=== PATIENT | female | born 1985 | race African-American/Black ===

== ENCOUNTER 2019-08-10 12:43 | Inpatient (IN) ==
[2019-08-10] MEDS ORDERED: ACETAMINOPHEN 500 MG TABLET ONE (13:27)
[2019-08-10] MEDS ORDERED: SODIUM CHLORIDE 0.9% 1,000 ML IV STA ×2 (13:31→14:35)
[2019-08-10] MEDS ORDERED: ACETAMINOPHEN 500 MG TABLET PO STA (13:32)
[2019-08-10] MEDS ORDERED: predniSONE 20 MG TABLET PO STA (14:28)
[2019-08-10 14:34] LABS: INR 1.1; PT Patient Result 11.8 SECS (9.6-12.2)
[2019-08-10] MEDS ORDERED: ALBUTEROL 2.5 MG/3 ML NEB RESP TX PRN (14:37)
[2019-08-10] MEDS ORDERED: PROMETHAZINE 25 MG/1 ML VIAL IM PRN (14:37)
[2019-08-10] MEDS ORDERED: ONDANSETRON 4 MG/2 ML VIAL IV PRN (14:37)
[2019-08-10] MEDS ORDERED: ACETAMINOPHEN 325 MG TABLET PO PRN (14:37)
[2019-08-10] MEDS ORDERED: NOREPINEPHRINE 8 MG in SODIUM CHLORIDE 0.9% 242 ML IV PRN (14:43)
[2019-08-10 14:59] LABS: Bilirubin,Total 1.1 MG/DL (0.2-1.0); Calcium 7.4 MG/DL (8.5-10.1); Total Protein 6.3 G/DL (6.4-8.3)
[2019-08-10 15:10] LABS: Basophils % 0.2 % (0.0-0.8); Hematocrit 21.2 VOL% (35.7-47.0); Hemoglobin 6.6 GM/DL (12.0-16.0); Immature Granulocytes % 0.7 %; Immature Granulocytes Absolute 0.03 #; Lymphocytes # 0.3 10*3/uL (1.4-4.0); Lymphocytes % 6.1 % (21.3-54.2); Mean Corpuscular HGB Conc 31.1 GM/DL (32-36); Mean Corpuscular Volume 87.2 FL (87-102); Mean Platelet Volume 11.8 FL (9.6-12.0); Monocytes % 5.1 % (1.7-12.7); Neutrophils % 87.9 % (38.7-73.9); Platelet Count 228 T/CUMM (130-400); Red Blood Count 2.43 MC/CUMM (3.8-5.5); Red Cell Distribution Width 13.3 % (9.3-17.3); White Blood Count 4.3 T/CUMM (4-12)
[2019-08-10 15:21] LABS: Apearance,Urine CLEAR (Clear); Bilirubin,Urine Negative (Negative); Blood, Urine Negative (Negative); Glucose,Urine (UA) Negative (Negative); Ketones,Urine Negative (Negative); Nitrite,Urine Negative (Negative); Protein,Urine Negative; RBC,Urine 3 /HPF (0-4); Squamous Epithelial Cell,Urine Few /HPF (0-10); Urine Color Yellow (Yellow); Urine Specific Gravity 1.011 (1.001-1.035); WBC,Urine <1 /HPF (0-6)
[2019-08-10] MEDS ORDERED: SODIUM CHLORIDE 0.9% 1,000 ML IV PRN (15:25)
[2019-08-10] MEDS ORDERED: POTASSIUM CHLORIDE 20 MEQ TABLET PO ONE (15:33)
[2019-08-10 15:47] LABS: Band Neutrophils 1 % (0-10); Hypochromasia 1+; Lymphocytes 1 % (20-55); Segmented Neutrophils 93 % (50-85); Total Cells Counted 100
[2019-08-10 15:48] LABS: Macrocytosis Slight; Microcytosis 1+; Platelet Estimate Adequate; Polychromasia Slight
[2019-08-10 15:49] LABS: Helmet Cells Few
[2019-08-10 16:06] LABS: Hematocrit 20.7 VOL% (35.7-47.0); Hemoglobin 6.5 GM/DL (12.0-16.0); Immature Granulocytes % 0.7 %; Immature Granulocytes Absolute 0.03 #; Lymphocytes # 0.3 10*3/uL (1.4-4.0); Lymphocytes % 5.8 % (21.3-54.2); Mean Corpuscular HGB Conc 31.4 GM/DL (32-36); Mean Corpuscular Volume 88.1 FL (87-102); Mean Platelet Volume 11.6 FL (9.6-12.0); Monocytes % 4.9 % (1.7-12.7); Neutrophils % 88.6 % (38.7-73.9); Platelet Count 232 T/CUMM (130-400); Red Blood Count 2.35 MC/CUMM (3.8-5.5); Red Cell Distribution Width 13.5 % (9.3-17.3); White Blood Count 4.5 T/CUMM (4-12)
[2019-08-10] MEDS: DORNASE ALFA 2.5 MG/2.5 ML VIAL RESP TX SCH ×2 (16:15→19:04)
[2019-08-10 17:06] LABS: Ferritin 2326.5 ng/ml (8-252)
[2019-08-10 17:19] LABS: Band Neutrophils 3 % (0-10); Hypochromasia Slight; Lymphocytes 4 % (20-55); Microcytosis 1+; Platelet Estimate Adequate; Segmented Neutrophils 87 % (50-85); Total Cells Counted 100
[2019-08-10] MEDS: methylPREDNISolone SOD SUC 40 MG/1 ML VIAL IV SCH ×2 (17:27→20:40)
[2019-08-10] MEDS: PIPERACILLIN/TAZOBACTAM 3,375 MG in SODIUM CHLORIDE 0.9% 100 ML IV SCH ×2 (17:34→23:04)
[2019-08-10] MEDS: VANCOMYCIN INJ 750 MG in SODIUM CHLORIDE 0.9% 250 ML IV SCH (17:34)
[2019-08-10] MEDS: FLUCONAZOLE INJ 200 MG in PREMIX 1 EACH IV SCH (17:34)
[2019-08-10] MEDS: PANTOPRAZOLE 40 MG TABLET PO SCH (17:35)
[2019-08-10] MEDS: NYSTATIN 500,000 UNIT/5 ML UDCUP SWISH/SWAL SCH ×2 (17:39→20:50)
[2019-08-10 17:45] LABS: Folate 12.6 NG/ML (5.4-24.0); Vitamin B12 605 PG/ML (211-911)
[2019-08-10 17:45] LABS: Sedimentation Rate-Westergren 135 MM/HR (0-20)
[2019-08-10] MEDS: ENOXAPARIN 40 MG/0.4 ML SYRINGE SUBCUT SCH (17:45)
[2019-08-10] MEDS: SODIUM CHLORIDE 0.9% 1,000 ML IV SCH (17:45)
[2019-08-10] MEDS: SULFAMETH/TRIMETH INJ 200 MG in DEXTROSE 5% 250 ML IV SCH ×2 (18:39→23:33)
[2019-08-10] MEDS: ALBUTEROL/IPRATROPIUM 3 ML NEB RESP TX SCH (18:57)
[2019-08-10] MEDS: LEVOFLOXACIN INJ 750 MG in PREMIX 1 EACH IV SCH (20:45)
[2019-08-10] MEDS ORDERED: TRIMETH IV SCH (22:00)
[2019-08-10] MEDS ORDERED: DEXTROSE 5% IV SCH (22:00)
[2019-08-10] MEDS ORDERED: SULFAMETH IV SCH (22:00)
[2019-08-11] MEDS: ALBUTEROL/IPRATROPIUM 3 ML NEB RESP TX SCH ×4 (01:04→20:03)
[2019-08-11] MEDS: SODIUM CHLORIDE 0.9% 1,000 ML IV SCH ×3 (01:17→23:31)
[2019-08-11] MEDS: methylPREDNISolone SOD SUC 40 MG/1 ML VIAL IV SCH ×4 (02:56→20:23)
[2019-08-11] MEDS: VANCOMYCIN INJ 750 MG in SODIUM CHLORIDE 0.9% 250 ML IV SCH ×2 (03:57→15:53)
[2019-08-11] MEDS: SULFAMETH/TRIMETH INJ 200 MG in DEXTROSE 5% 250 ML IV SCH ×4 (05:06→22:34)
[2019-08-11 06:00] LABS: Hematocrit 30.8 VOL% (35.7-47.0); Hemoglobin 9.8 GM/DL (12.0-16.0); Immature Granulocytes % 0.9 %; Immature Granulocytes Absolute 0.05 #; Lymphocytes # 0.3 10*3/uL (1.4-4.0); Lymphocytes % 4.3 % (21.3-54.2); Mean Corpuscular HGB Conc 31.8 GM/DL (32-36); Mean Corpuscular Volume 90.1 FL (87-102); Monocytes % 1.7 % (1.7-12.7); Neutrophils % 93.1 % (38.7-73.9); Platelet Count 200 T/CUMM (130-400); Red Blood Count 3.42 MC/CUMM (3.8-5.5); Red Cell Distribution Width 13.7 % (9.3-17.3); White Blood Count 5.8 T/CUMM (4-12)
[2019-08-11 06:29] LABS: Band Neutrophils 5 % (0-10); Hypochromasia 1+; Lymphocytes 5 % (20-55); Segmented Neutrophils 88 % (50-85); Total Cells Counted 100
[2019-08-11 06:30] LABS: Microcytosis 1+; Ovalocytes Slight; Platelet Estimate Normal
[2019-08-11] MEDS: PIPERACILLIN/TAZOBACTAM 3,375 MG in SODIUM CHLORIDE 0.9% 100 ML IV SCH ×2 (06:45→14:11)
[2019-08-11 06:47] LABS: Alanine Aminotransferase 14 U/L (13-56); Albumin 1.9 G/DL (3.4-5.0); Alkaline Phosphatase 88 U/L (45-117); Aspartate Amino Transferase 31 U/L (0-37); Bilirubin,Total < 0.39 MG/DL (0.2-1.0); Blood Urea Nitrogen 5 MG/DL (7-18); Calcium 7.2 MG/DL (8.5-10.1); Estimated Glom Filtration Rate 117 ML/MIN; Glucose 259 MG/DL (74-106); Osmolality,Calculated 282.5 MOS/KG (273-304); Total Protein 6.2 G/DL (6.4-8.3)
[2019-08-11] MEDS: DORNASE ALFA 2.5 MG/2.5 ML VIAL RESP TX SCH ×2 (07:25→20:03)
[2019-08-11] MEDS: NYSTATIN 500,000 UNIT/5 ML UDCUP SWISH/SWAL SCH ×4 (09:34→19:59)
[2019-08-11 09:36] LABS: Hemoglobin A1 (Alkaline) 97.2 % (96.5-98.5); Hemoglobin A2 (Alkaline) 2.8 % (1.5-3.5)
[2019-08-11] MEDS: PANTOPRAZOLE 40 MG TABLET PO SCH (09:36)
[2019-08-11] MEDS: FLUCONAZOLE INJ 200 MG in PREMIX 1 EACH IV SCH (14:10)
[2019-08-11] MEDS: ENOXAPARIN 40 MG/0.4 ML SYRINGE SUBCUT SCH (14:17)
[2019-08-11] MEDS ORDERED: BENZONATATE 100 MG CAPSULE PO SCH (15:13)
[2019-08-11] MEDS: BENZONATATE 100 MG CAPSULE PO SCH ×2 (15:53→19:59)
[2019-08-11] MEDS: LEVOFLOXACIN INJ 750 MG in PREMIX 1 EACH IV SCH (16:46)
[2019-08-11] MEDS ORDERED: MELATONIN 3 MG TABLET PO PRN (20:06)
[2019-08-12] MEDS: PIPERACILLIN/TAZOBACTAM 3,375 MG in SODIUM CHLORIDE 0.9% 100 ML IV SCH ×4 (00:10→23:35)
[2019-08-12] MEDS: ALBUTEROL/IPRATROPIUM 3 ML NEB RESP TX SCH ×4 (00:38→20:31)
[2019-08-12] MEDS: methylPREDNISolone SOD SUC 40 MG/1 ML VIAL IV SCH ×2 (03:58→20:29)
[2019-08-12] MEDS: VANCOMYCIN INJ 750 MG in SODIUM CHLORIDE 0.9% 250 ML IV SCH (04:13)
[2019-08-12] MEDS: SULFAMETH/TRIMETH INJ 200 MG in DEXTROSE 5% 250 ML IV SCH (05:21)
[2019-08-12 05:43] LABS: Basophils % 0.1 % (0.0-0.8); Hematocrit 28.7 VOL% (35.7-47.0); Hemoglobin 9.2 GM/DL (12.0-16.0); Immature Granulocytes Absolute 0.13 #; Lymphocytes # 0.4 10*3/uL (1.4-4.0); Lymphocytes % 3.3 % (21.3-54.2); Mean Corpuscular HGB Conc 32.1 GM/DL (32-36); Mean Corpuscular Volume 89.4 FL (87-102); Mean Platelet Volume 11.8 FL (9.6-12.0); Monocytes % 2.7 % (1.7-12.7); Neutrophils % 92.9 % (38.7-73.9); Platelet Count 223 T/CUMM (130-400); Red Blood Count 3.21 MC/CUMM (3.8-5.5); Red Cell Distribution Width 13.8 % (9.3-17.3); White Blood Count 12.4 T/CUMM (4-12)
[2019-08-12 06:12] LABS: Band Neutrophils 4 % (0-10); Calcium 7.7 MG/DL (8.5-10.1); Hypochromasia 1+; Lymphocytes 1 % (20-55); Osmolality,Calculated 282.3 MOS/KG (273-304); Segmented Neutrophils 92 % (50-85); Total Cells Counted 100
[2019-08-12 06:13] LABS: Microcytosis 1+; Ovalocytes Few; Platelet Estimate Normal; Target Cells Slight
[2019-08-12] MEDS: SODIUM CHLORIDE 0.9% 1,000 ML IV SCH (07:59)
[2019-08-12] MEDS: DORNASE ALFA 2.5 MG/2.5 ML VIAL RESP TX SCH ×2 (07:59→20:31)
[2019-08-12] MEDS ORDERED: methylPREDNISolone SOD SUC 40 MG/1 ML VIAL IV SCH (08:00)
[2019-08-12] MEDS: NYSTATIN 500,000 UNIT/5 ML UDCUP SWISH/SWAL SCH (08:53)
[2019-08-12] MEDS: PANTOPRAZOLE 40 MG TABLET PO SCH (08:54)
[2019-08-12] MEDS: BENZONATATE 100 MG CAPSULE PO SCH (08:54)
[2019-08-12] MEDS ORDERED: SULFAMETHOX/TRIMETHOPRIM 800-160 MG TABLET PO SCH (09:00)
[2019-08-12] MEDS ORDERED: PHENOL 1.4% THROAT SPRAY 177 ML BOTTLE PO PRN (10:28)
[2019-08-12] MEDS: FLUCONAZOLE 200 MG TABLET PO SCH (12:34)
[2019-08-12] MEDS: LEVOFLOXACIN 750 MG TABLET PO SCH (12:35)
[2019-08-12] MEDS: HYDROcodone/CHLORPHENIRAMINE ER 5 ML UDCUP PO SCH ×2 (12:36→20:29)
[2019-08-12] MEDS: SULFAMETHOX/TRIMETHOPRIM 800-160 MG TABLET PO SCH ×2 (15:43→20:31)
[2019-08-12] MEDS: ENOXAPARIN 40 MG/0.4 ML SYRINGE SUBCUT SCH (16:23)
[2019-08-12 19:21] LABS: % CD4 (T Cells) 2 % (32-64); % CD8 (T Cells) 54 % (15-40); 4/8 Ratio 0 (>=0.9)
[2019-08-13] MEDS: ALBUTEROL/IPRATROPIUM 3 ML NEB RESP TX SCH ×2 (01:00→07:41)
[2019-08-13 06:10] VITALS: BP 107/70
[2019-08-13 06:54] LABS: Basophils % 0.2 % (0.0-0.8); Hematocrit 31.6 VOL% (35.7-47.0); Immature Granulocytes % 2.8 %; Immature Granulocytes Absolute 0.33 #; Lymphocytes # 0.2 10*3/uL (1.4-4.0); Lymphocytes % 1.4 % (21.3-54.2); Mean Corpuscular HGB Conc 31.6 GM/DL (32-36); Mean Corpuscular Volume 90.3 FL (87-102); Mean Platelet Volume 12.1 FL (9.6-12.0); Monocytes % 2.1 % (1.7-12.7); Neutrophils % 93.5 % (38.7-73.9); Platelet Count 241 T/CUMM (130-400); Red Cell Distribution Width 14.3 % (9.3-17.3); White Blood Count 11.7 T/CUMM (4-12)
[2019-08-13 06:58] LABS: Calcium 7.9 MG/DL (8.5-10.1); Osmolality,Calculated 282.3 MOS/KG (273-304)
[2019-08-13 07:17] LABS: Band Neutrophils 4 % (0-10); Lymphocytes 3 % (20-55); Segmented Neutrophils 90 % (50-85); Total Cells Counted 100
[2019-08-13 07:18] LABS: Hypochromasia 1+; Microcytosis Slight; Ovalocytes Slight; Platelet Estimate Normal
[2019-08-13] MEDS: DORNASE ALFA 2.5 MG/2.5 ML VIAL RESP TX SCH (07:47)
[2019-08-13] MEDS: PIPERACILLIN/TAZOBACTAM 3,375 MG in SODIUM CHLORIDE 0.9% 100 ML IV SCH (08:16)
[2019-08-13] MEDS: methylPREDNISolone SOD SUC 40 MG/1 ML VIAL IV SCH (08:17)
[2019-08-13] MEDS: SULFAMETHOX/TRIMETHOPRIM 800-160 MG TABLET PO SCH (08:18)
[2019-08-13] MEDS: LEVOFLOXACIN 750 MG TABLET PO SCH (08:19)
[2019-08-13] MEDS: FLUCONAZOLE 200 MG TABLET PO SCH (08:19)
[2019-08-13] MEDS: PANTOPRAZOLE 40 MG TABLET PO SCH (09:07)
[2019-08-13] MEDS: HYDROcodone/CHLORPHENIRAMINE ER 5 ML UDCUP PO SCH (09:07)
[2019-08-13 14:25] LABS: HIV 1 RNA Quant Reflex to Geno 418000 copies/mL (Undetected)
[2019-08-13 18:31] LABS: QuantiFERON-Tb Gold Pl Indeterminate (Negative); TB2 Ag Minus Result 0 IU/mL
[2019-08-18 12:54] LABS: HIV-1 Genotypic PR-RT Drug Res INTERP; Tipranavir + Ritonavir SUSC
== END 2019-08-13 11:40 | disposition home or self-care (01) | DRG 892 ==
LOC: EDUNIT# 12:43 → N.ED 12:43 → EDBD 12:43 → N.EDINP 14:37 → SUATTDRO 14:37 → N.CC 15:03 → N.3E 08-11 11:16
PROVIDERS: ADMIT Internal Medicine; ATTEND Family Medicine

== ENCOUNTER 2020-01-19 11:19 | Inpatient (IN) ==
[2020-01-19] MEDS ORDERED: SODIUM CHLORIDE 0.9% 2,000 ML IV STA (11:46)
[2020-01-19] MEDS ORDERED: HYDROCORTISONE 100 MG VIAL IV STA (12:17)
[2020-01-19 12:44] LABS: INR 1.1; PT Patient Result 11.4 SECS (9.8-11.9); Partial Thromboplastin Time 35.9 SECS (23.9-33.8)
[2020-01-19 12:47] LABS: Basophils % 0.8 % (0.0-0.8); Hematocrit 29.5 VOL% (35.7-47.0); Hemoglobin 9.2 GM/DL (12.0-16.0); Lymphocytes % 79.4 % (21.3-54.2); Mean Corpuscular HGB Conc 31.2 GM/DL (32-36); Mean Corpuscular Volume 94.2 FL (87-102); Mean Platelet Volume 11.8 FL (9.6-12.0); Monocytes % 5.6 % (1.7-12.7); Neutrophils % 14.2 % (38.7-73.9); Platelet Count 86 T/CUMM (130-400); Red Blood Count 3.13 MC/CUMM (3.8-5.5); Red Cell Distribution Width 17.1 % (9.3-17.3); White Blood Count 1.3 T/CUMM (4-12)
[2020-01-19 12:55] LABS: Alanine Aminotransferase 56 U/L (13-56); Albumin 3.2 G/DL (3.4-5.0); Alkaline Phosphatase 106 U/L (45-117); Aspartate Amino Transferase 169 U/L (0-37); Bilirubin,Total < 0.39 MG/DL (0.2-1.0); Blood Urea Nitrogen 42 MG/DL (7-18); Calcium 11.5 MG/DL (8.5-10.1); Estimated Glom Filtration Rate 20 ML/MIN; Glucose 71 MG/DL (74-106); Osmolality,Calculated 281.8 MOS/KG (273-304)
[2020-01-19 13:21] LABS: Free T4 (Free Thyroxine) 1.02 NG/DL (0.76-1.46); Thyroid Stimulating Hormone 0.111 uIU/ml (0.358-3.74)
[2020-01-19] MEDS ORDERED: PIPERACILLIN/TAZOBACTAM 3,375 MG in SODIUM CHLORIDE 0.9% 100 ML IV STA (13:22)
[2020-01-19 13:42] LABS: Anisocytosis Slight; Eosinophils 1 % (0-10); Lymphocytes 87 % (20-55); Macrocytosis Slight; Microcytosis Slight; Platelet Estimate Decreased; Reactive Lymphocytes 1+; Segmented Neutrophils 8 % (50-85); Total Cells Counted 100
[2020-01-19 14:08] LABS: Apearance,Urine Slightly Hazy (Clear); Bacteria,Urine Moderate /HPF (Few); Bilirubin,Urine Negative (Negative); Blood, Urine Small mg/dL (Negative); Glucose,Urine (UA) Negative (Negative); Hyaline Casts,Urine 14 /LPF (0-3); Ketones,Urine Negative (Negative); Mucus,Urine Occasional /LPF (Occasional); Nitrite,Urine Negative (Negative); Protein,Urine Negative; RBC,Urine 6 /HPF (0-4); Urine Color Yellow (Yellow); Urine Specific Gravity 1.015 (1.001-1.035); Urine Urobilinogen < 2.0 EU/DL (0.2-1.0); WBC,Urine 3 /HPF (0-6)
[2020-01-19 14:24] LABS: Barbiturates Screen,Urine Negative (Negative); Benzodiazepines Screen,Urine Negative (Negative); Cannabinoid Screen,Urine Negative (Negative); Opiate Screen,Urine Negative (Negative); Phencyclidine Screen,Urine Negative (Negative)
[2020-01-19] MEDS ORDERED: ACETAMINOPHEN 325 MG TABLET PO PRN (15:21)
[2020-01-19] MEDS ORDERED: DOCUSATE SODIUM 100 MG CAPSULE PO PRN (15:21)
[2020-01-19] MEDS ORDERED: ALBUTEROL 2.5 MG/3 ML NEB RESP TX PRN (15:21)
[2020-01-19] MEDS ORDERED: ONDANSETRON 4 MG/2 ML VIAL IV PRN (15:21)
[2020-01-19] MEDS ORDERED: LEVOFLOXACIN INJ 750 MG in PREMIX 1 EACH IV STA (15:29)
[2020-01-19] MEDS ORDERED: NOREPINEPHRINE 8 MG in SODIUM CHLORIDE 0.9% 242 ML IV SCH (15:30)
[2020-01-19] MEDS ORDERED: PANTOPRAZOLE 40 MG VIAL IV SCH (15:30)
[2020-01-19] MEDS ORDERED: VANCOMYCIN INJ 1,000 MG in SODIUM CHLORIDE 0.9% 250 ML IV ONE (16:00)
[2020-01-19] MEDS ORDERED: NICOTINE 21 MG/24 HR PATCH TRANSDERM PRN (16:05)
[2020-01-19 16:18] LABS: ABG Base Excess -2.7 MMOL/L (-2.5-2.5); ABG HCO3 22.2 MMOL/L (20-26); ABG Oxygen Saturation 98.8 % (95-100); ABG PCO2 37.7 MM HG (35-48); ABG PH 7.377 (7.35-7.45); ABG TCO2 20.7 MMOL/L (23-27)
[2020-01-19] MEDS: SODIUM CHLORIDE 0.9% 1,000 ML IV SCH ×2 (16:27→21:22)
[2020-01-19] MEDS: SULFAMETH IV SCH (17:30)
[2020-01-19] MEDS: DEXTROSE 5% IV SCH (17:30)
[2020-01-19] MEDS: TRIMETH IV SCH (17:30)
[2020-01-20] MEDS: SULFAMETH IV SCH ×2 (00:52→09:45)
[2020-01-20] MEDS: TRIMETH IV SCH ×2 (00:52→09:45)
[2020-01-20] MEDS: DEXTROSE 5% IV SCH ×2 (00:52→09:45)
[2020-01-20] MEDS: SODIUM CHLORIDE 0.9% 1,000 ML IV SCH ×2 (08:45→16:30)
[2020-01-20] MEDS ORDERED: VANCOMYCIN INJ 750 MG in SODIUM CHLORIDE 0.9% 250 ML IV PRN (09:38)
[2020-01-20 12:07] LABS: Hematocrit 27.1 VOL% (35.7-47.0); Hemoglobin 8.5 GM/DL (12.0-16.0); Lymphocytes # 0.9 10*3/uL (1.4-4.0); Lymphocytes % 78.3 % (21.3-54.2); Mean Corpuscular HGB Conc 31.4 GM/DL (32-36); Mean Corpuscular Volume 93.4 FL (87-102); Mean Platelet Volume 11.2 FL (9.6-12.0); Monocytes % 6.7 % (1.7-12.7); Platelet Count 80 T/CUMM (130-400); Red Cell Distribution Width 17.2 % (9.3-17.3); White Blood Count 1.2 T/CUMM (4-12)
[2020-01-20] MEDS ORDERED: LORazepam 2 MG/1 ML VIAL IV ONE (12:20)
[2020-01-20 12:35] LABS: Alanine Aminotransferase 33 U/L (13-56); Albumin 2.3 G/DL (3.4-5.0); Alkaline Phosphatase 76 U/L (45-117); Anisocytosis 1+; Aspartate Amino Transferase 91 U/L (0-37); Atypical Lymphocytes Few; Bilirubin,Total < 0.39 MG/DL (0.2-1.0); Blood Urea Nitrogen 27 MG/DL (7-18); Calcium 9.2 MG/DL (8.5-10.1); Eosinophils 4 % (0-10); Estimated Glom Filtration Rate 35 ML/MIN; Glucose 57 MG/DL (74-106); Lymphocytes 76 % (20-55); Osmolality,Calculated 281.4 MOS/KG (273-304); Platelet Estimate Decreased; Segmented Neutrophils 14 % (50-85); Smudge Cells Few; Total Cells Counted 100; Total Protein 6.1 G/DL (6.4-8.3)
[2020-01-20 12:36] LABS: Macrocytosis 1+; Poikilocytosis Slight
[2020-01-20 14:06] LABS: Glucose,CSF 29 MG/DL (40-70)
[2020-01-20 14:16] LABS: Appearance,CSF Clear; Lymphocytes,CSF 94 %; Monocytes,CSF 6 %; Red Blood Cell,CSF < 1 C/CUMM; White Blood Cell,CSF 12 C/CUMM
[2020-01-20] MEDS: DEXTROSE 5% NACL 0.9% 1,000 ML IV SCH (15:04)
[2020-01-20] MEDS: SULFAMETHOX/TRIMETHOPRIM 800-160 MG TABLET PO SCH ×2 (15:29→22:16)
[2020-01-20] MEDS ORDERED: DEXTROSE 10% 250 ML BAG IV ONE (21:53)
[2020-01-20] MEDS: risperiDONE 1 MG TABLET PO SCH (22:16)
[2020-01-20] MEDS: BENZTROPINE 1 MG TABLET PO SCH (22:16)
[2020-01-20] MEDS: DIVALPROEX 250 MG TABLET PO SCH (22:16)
[2020-01-21] MEDS ORDERED: DEXTROSE 10% 250 ML BAG IV PRN (01:03)
[2020-01-21] MEDS: DEXTROSE 5% NACL 0.9% 1,000 ML IV SCH (03:24)
[2020-01-21 08:24] VITALS: BP 101/63
[2020-01-21] MEDS ORDERED: BICTEGRAV EMTRICIT TENOFOV ALA PO SCH (09:00)
[2020-01-21 09:22] LABS: Hematocrit 25.8 VOL% (35.7-47.0); Lymphocytes # 0.8 10*3/uL (1.4-4.0); Lymphocytes % 72.4 % (21.3-54.2); Mean Corpuscular Volume 95.2 FL (87-102); Mean Platelet Volume 11.4 FL (9.6-12.0); Monocytes % 8.6 % (1.7-12.7); Platelet Count 85 T/CUMM (130-400); Red Blood Count 2.71 MC/CUMM (3.8-5.5); Red Cell Distribution Width 17.2 % (9.3-17.3); White Blood Count 1.1 T/CUMM (4-12)
[2020-01-21] MEDS: DIVALPROEX 250 MG TABLET PO SCH (09:31)
[2020-01-21] MEDS: SULFAMETHOX/TRIMETHOPRIM 800-160 MG TABLET PO SCH (09:32)
[2020-01-21] MEDS: BENZTROPINE 1 MG TABLET PO SCH (09:32)
[2020-01-21] MEDS: risperiDONE 1 MG TABLET PO SCH (09:37)
[2020-01-21 09:38] LABS: Alanine Aminotransferase 30 U/L (13-56); Albumin 2.3 G/DL (3.4-5.0); Alkaline Phosphatase 73 U/L (45-117); Aspartate Amino Transferase 69 U/L (0-37); Bilirubin,Total < 0.39 MG/DL (0.2-1.0); Blood Urea Nitrogen 18 MG/DL (7-18); Estimated Glom Filtration Rate 44 ML/MIN; Glucose 68 MG/DL (74-106); Prealbumin 8.4 MG/DL (20-40); Total Protein 6.1 G/DL (6.4-8.3)
[2020-01-21 09:50] LABS: Anisocytosis 1+; Band Neutrophils 3 % (0-10); Eosinophils 4 % (0-10); Lymphocytes 66 % (20-55); Platelet Estimate Decreased; Segmented Neutrophils 17 % (50-85); Total Cells Counted 100
[2020-01-21 09:51] LABS: Macrocytosis Slight
[2020-01-21] MEDS ORDERED: MAGNESIUM SULF RIDER 4 GM in PREMIX 1 EACH IV PRN (11:40)
[2020-01-21] MEDS ORDERED: MAGNESIUM SULF RIDER 2 GM in PREMIX 1 EACH IV PRN (11:40)
[2020-01-21] MEDS ORDERED: LEVOFLOXACIN INJ 750 MG in PREMIX 1 EACH IV SCH (15:00)
[2020-01-22 12:40] LABS: VDRL Spinal Fluid Negative (Negative)
[2020-01-22 14:04] LABS: % CD4 (T Cells) 4 % (32-64); % CD8 (T Cells) 56 % (15-40); 4/8 Ratio 0.1 (>=0.9)
[2020-01-22 14:07] LABS: CMV PCR Source CSF; Specimen Source CSF
[2020-01-23 11:41] LABS: M. Tuberculosis PCR Result Negative (Negative); M. Tuberculosis PCR Source CSF
[2020-01-24 17:11] LABS: Adenovirus PCR Negative (Negative); Specimen Source CSF
== END 2020-01-21 11:44 | disposition home or self-care (01) | DRG 890 ==
LOC: EDBD → EDUNIT# → N.ED 11:19 → SUATTDRO 15:21 → N.EDINP 15:21 → N.ICU 21:00 → N.TELES 01-20 16:48
PROVIDERS: ADMIT Internal Medicine; ATTEND Internal Medicine

== ENCOUNTER 2020-01-25 20:50 | Inpatient (IN) ==
[2020-01-25] MEDS ORDERED: DEXTROSE 50% 25 GM/50 ML SYRINGE IV ONE (21:00)
[2020-01-25] MEDS ORDERED: DEXTROSE 50% 25 GM/50 ML SYRINGE IV STA (21:16)
[2020-01-25] MEDS ORDERED: DEXTROSE 10% 250 ML IV ONE (21:23)
[2020-01-25 21:26] LABS: Hematocrit 27.4 VOL% (35.7-47.0); Hemoglobin 8.5 GM/DL (12.0-16.0); Lymphocytes # 1.3 10*3/uL (1.4-4.0); Lymphocytes % 74.9 % (21.3-54.2); Mean Corpuscular Volume 94.5 FL (87-102); Mean Platelet Volume 10.7 FL (9.6-12.0); Monocytes % 12.9 % (1.7-12.7); Neutrophils % 12.2 % (38.7-73.9); Platelet Count 137 T/CUMM (130-400); Red Cell Distribution Width 16.7 % (9.3-17.3); White Blood Count 1.7 T/CUMM (4-12)
[2020-01-25] MEDS ORDERED: DEXTROSE 10% 1,000 ML IV SCH ×2 (21:30→23:45)
[2020-01-25 21:41] LABS: Apearance,Urine CLOUDY (Clear); Bilirubin,Urine Negative (Negative); Blood, Urine Negative (Negative); Glucose,Urine (UA) 50 mg/dL (Negative); Hyaline Casts,Urine 7 /LPF (0-3); Ketones,Urine Negative (Negative); Mucus,Urine Occasional /LPF (Occasional); Nitrite,Urine Negative (Negative); Protein,Urine Negative; RBC,Urine 2 /HPF (0-4); Squamous Epithelial Cell,Urine Many /HPF (0-10); Urine Color Yellow (Yellow); Urine Specific Gravity 1.012 (1.001-1.035); Urine Urobilinogen < 2.0 EU/DL (0.2-1.0); WBC,Urine 1 /HPF (0-6)
[2020-01-25 21:53] LABS: Alanine Aminotransferase 63 U/L (13-56); Albumin 3.3 G/DL (3.4-5.0); Alkaline Phosphatase 114 U/L (45-117); Aspartate Amino Transferase 173 U/L (0-37); Bilirubin,Total < 0.39 MG/DL (0.2-1.0); Blood Urea Nitrogen 8 MG/DL (7-18); Calcium 8.6 MG/DL (8.5-10.1); Estimated Glom Filtration Rate 108 ML/MIN; Osmolality,Calculated 279.8 MOS/KG (273-304); Total Protein 7.2 G/DL (6.4-8.3)
[2020-01-25 21:57] LABS: Glucose 23 MG/DL (74-106)
[2020-01-25 22:48] LABS: Barbiturates Screen,Urine Negative (Negative); Benzodiazepines Screen,Urine Negative (Negative); Cannabinoid Screen,Urine Negative (Negative); Opiate Screen,Urine Negative (Negative); Phencyclidine Screen,Urine Negative (Negative)
[2020-01-25] MEDS ORDERED: ACETAMINOPHEN 325 MG TABLET PO PRN (23:53)
[2020-01-25] MEDS ORDERED: ALBUTEROL 2.5 MG/3 ML NEB RESP TX PRN (23:53)
[2020-01-25 23:59] LABS: Lymphocytes 78 % (20-55); Segmented Neutrophils 9 % (50-85); Total Cells Counted 100
[2020-01-26] LABS: Anisocytosis 1+; Ovalocytes 1+; Platelet Estimate Adequate
[2020-01-26] MEDS ORDERED: DEXTROSE 10% 250 ML IV ONE ×5 (02:57→05:28)
[2020-01-26] MEDS ORDERED: DEXTROSE 50% 25 GM/50 ML VIAL IV STA ×3 (03:57→07:00)
[2020-01-26 04:21] LABS: Hematocrit 23.4 VOL% (35.7-47.0); Hemoglobin 7.5 GM/DL (12.0-16.0); Lymphocytes # 0.5 10*3/uL (1.4-4.0); Lymphocytes % 59.3 % (21.3-54.2); Mean Corpuscular HGB Conc 32.1 GM/DL (32-36); Mean Corpuscular Volume 91.8 FL (87-102); Mean Platelet Volume 11.9 FL (9.6-12.0); Monocytes % 12.8 % (1.7-12.7); Neutrophils % 27.9 % (38.7-73.9); Platelet Count 138 T/CUMM (130-400); Red Blood Count 2.55 MC/CUMM (3.8-5.5); Red Cell Distribution Width 16.6 % (9.3-17.3)
[2020-01-26 04:35] LABS: White Blood Count 0.9 T/CUMM (4-12)
[2020-01-26 04:38] LABS: Alanine Aminotransferase 49 U/L (13-56); Albumin 2.7 G/DL (3.4-5.0); Alkaline Phosphatase 113 U/L (45-117); Aspartate Amino Transferase 113 U/L (0-37); Bilirubin,Total < 0.39 MG/DL (0.2-1.0); Blood Urea Nitrogen 8 MG/DL (7-18); Calcium 8.5 MG/DL (8.5-10.1); Estimated Glom Filtration Rate 96 ML/MIN; Glucose 55 MG/DL (74-106); Osmolality,Calculated 272.5 MOS/KG (273-304); Thyroid Stimulating Hormone 0.195 uIU/ml (0.358-3.74); Total Protein 6.5 G/DL (6.4-8.3)
[2020-01-26] MEDS ORDERED: DEXTROSE 50% 25 GM/50 ML SYRINGE IV ONE ×3 (04:49→06:53)
[2020-01-26 04:53] LABS: Eosinophils 3 % (0-10); Lymphocytes 58 % (20-55); Segmented Neutrophils 22 % (50-85); Total Cells Counted 100
[2020-01-26 04:54] LABS: Atypical Lymphocytes Few; Hypochromasia 1+; Platelet Estimate Adequate
[2020-01-26] MEDS ORDERED: ONDANSETRON 4 MG/2 ML VIAL ONE (06:53)
[2020-01-26] MEDS ORDERED: ONDANSETRON 4 MG/2 ML VIAL IV STA (07:00)
[2020-01-26] MEDS: DEXTROSE 10% 1,000 ML IV SCH ×2 (07:00→14:45)
[2020-01-26] MEDS: ENOXAPARIN 40 MG/0.4 ML SYRINGE SUBCUT SCH (08:51)
[2020-01-26] MEDS ORDERED: HYDROCORTISONE 100 MG VIAL IV STA (12:34)
[2020-01-26] MEDS ORDERED: TUBERCULIN SKIN TEST 0.1 ML SYRINGE INTRADERM ONE (12:39)
[2020-01-26] MEDS: MEROPENEM 500 MG in SODIUM CHLORIDE 0.9% 100 ML IV SCH ×2 (13:35→18:00)
[2020-01-26] MEDS: HYDROCORTISONE 100 MG VIAL IV SCH (15:57)
[2020-01-26] MEDS ORDERED: SODIUM CHLORIDE 0.9% 1,000 ML IV ONE (16:49)
[2020-01-26] MEDS: DEXTROSE 5% NACL 0.9% 1,000 ML IV SCH (18:56)
[2020-01-27] MEDS: HYDROCORTISONE 100 MG VIAL IV SCH ×4 (00:30→23:13)
[2020-01-27] MEDS: MEROPENEM 500 MG in SODIUM CHLORIDE 0.9% 100 ML IV SCH ×4 (00:30→20:46)
[2020-01-27] MEDS: DEXTROSE 5% NACL 0.9% 1,000 ML IV SCH (03:31)
[2020-01-27 07:20] LABS: Hematocrit 24.1 VOL% (35.7-47.0); Hemoglobin 7.6 GM/DL (12.0-16.0); Lymphocytes # 0.5 10*3/uL (1.4-4.0); Lymphocytes % 50.5 % (21.3-54.2); Mean Corpuscular HGB Conc 31.5 GM/DL (32-36); Mean Platelet Volume 11.5 FL (9.6-12.0); Monocytes % 5.6 % (1.7-12.7); Neutrophils % 43.9 % (38.7-73.9); Platelet Count 155 T/CUMM (130-400); Red Blood Count 2.62 MC/CUMM (3.8-5.5); Red Cell Distribution Width 16.4 % (9.3-17.3); White Blood Count 1.1 T/CUMM (4-12)
[2020-01-27 07:45] LABS: Atypical Lymphocytes Few; Band Neutrophils 1 % (0-10); Hypochromasia 2+; Lymphocytes 53 % (20-55); Ovalocytes Slight; Platelet Estimate Adequate; Segmented Neutrophils 40 % (50-85); Total Cells Counted 100
[2020-01-27 07:52] LABS: Alanine Aminotransferase 39 U/L (13-56); Albumin 2.6 G/DL (3.4-5.0); Alkaline Phosphatase 78 U/L (45-117); Aspartate Amino Transferase 64 U/L (0-37); Bilirubin,Total < 0.39 MG/DL (0.2-1.0); Blood Urea Nitrogen 4 MG/DL (7-18); Calcium 8.3 MG/DL (8.5-10.1); Estimated Glom Filtration Rate 63 ML/MIN; Glucose 165 MG/DL (74-106); Osmolality,Calculated 286.8 MOS/KG (273-304); Total Protein 6.8 G/DL (6.4-8.3)
[2020-01-27] MEDS: SODIUM CHLORIDE 0.9% 1,000 ML IV SCH ×2 (08:27→23:13)
[2020-01-27] MEDS: ENOXAPARIN 40 MG/0.4 ML SYRINGE SUBCUT SCH (08:28)
[2020-01-27] MEDS ORDERED: BICTEGRAV EMTRICIT TENOFOV ALA PO SCH (13:07)
[2020-01-27] MEDS: SULFAMETHOX/TRIMETHOPRIM 800-160 MG TABLET PO SCH (14:08)
[2020-01-27] MEDS: LEVOTHYROXINE 88 MCG TABLET PO SCH (14:08)
[2020-01-27] MEDS: DIVALPROEX 500 MG TABLET PO SCH ×2 (14:08→20:46)
[2020-01-27] MEDS: BENZTROPINE 1 MG TABLET PO SCH ×2 (14:10→20:46)
[2020-01-27] MEDS ORDERED: DESMOPRESSIN 0.1 MG PO SCH (21:00)
[2020-01-28] MEDS: MEROPENEM 500 MG in SODIUM CHLORIDE 0.9% 100 ML IV SCH ×3 (01:50→14:00)
[2020-01-28 05:43] LABS: Calcium 7.4 MG/DL (8.5-10.1); Osmolality,Calculated 286.6 MOS/KG (273-304)
[2020-01-28] MEDS ORDERED: MAGNESIUM SULF RIDER 4 GM in PREMIX 1 EACH IV ONE (06:50)
[2020-01-28] MEDS: BENZTROPINE 1 MG TABLET PO SCH (08:27)
[2020-01-28] MEDS: DIVALPROEX 500 MG TABLET PO SCH (08:27)
[2020-01-28] MEDS: ENOXAPARIN 40 MG/0.4 ML SYRINGE SUBCUT SCH (08:27)
[2020-01-28] MEDS: LEVOTHYROXINE 88 MCG TABLET PO SCH (08:27)
[2020-01-28] MEDS: SULFAMETHOX/TRIMETHOPRIM 800-160 MG TABLET PO SCH (08:27)
[2020-01-28] MEDS ORDERED: HYDROCORTISONE 10 MG TABLET PO SCH (09:00)
[2020-01-28] MEDS ORDERED: POTASSIUM CHLORIDE 20 MEQ TABLET PO ONE (10:34)
[2020-01-28 11:47] VITALS: BP 108/70
== END 2020-01-28 14:45 | disposition home or self-care (01) | DRG 424 ==
LOC: N.ED 20:50 → SUATTDRO 23:52 → N.EDINP 23:52 → N.CVR 01-26 14:05 → N.3E 01-27 11:41
PROVIDERS: ADMIT Student in an Organized Health Care Education/Training Program; ATTEND Internal Medicine

== ENCOUNTER 2020-05-18 08:27 | Inpatient (IN) ==
[2020-05-18] MEDS ORDERED: HYDROCORTISONE 100 MG VIAL IV STA ×2 (08:48→11:13)
[2020-05-18 09:11] LABS: Basophils % 1.2 % (0.0-0.8); Hematocrit 34.5 VOL% (35.7-47.0); Hemoglobin 10.8 GM/DL (12.0-16.0); Lymphocytes # 0.7 10*3/uL (1.4-4.0); Lymphocytes % 44.4 % (21.3-54.2); Mean Corpuscular HGB Conc 31.3 GM/DL (32-36); Mean Corpuscular Volume 89.4 FL (87-102); Mean Platelet Volume 11.9 FL (9.6-12.0); Monocytes % 8.6 % (1.7-12.7); Neutrophils % 45.8 % (38.7-73.9); Platelet Count 175 T/CUMM (130-400); Red Blood Count 3.86 MC/CUMM (3.8-5.5); Red Cell Distribution Width 14.2 % (9.3-17.3); White Blood Count 1.6 T/CUMM (4-12)
[2020-05-18 09:18] LABS: Apearance,Urine Clear (Clear); Bacteria,Urine Moderate /HPF (Few); Bilirubin,Urine Negative (Negative); Blood, Urine NEGATIVE (Negative); Glucose,Urine (UA) 150 mg/dL (Negative); Ketones,Urine Negative (Negative); Mucus,Urine Occasional /LPF (Occasional); Nitrite,Urine Negative (Negative); Protein,Urine Negative; RBC,Urine 1 /HPF (0-4); Squamous Epithelial Cell,Urine Occasional /HPF (0-10); Urine Color Yellow (Yellow); WBC,Urine 1 /HPF (0-6)
[2020-05-18 09:19] LABS: Urine Urobilinogen < 2.0 EU/DL (0.2-1.0)
[2020-05-18 09:20] LABS: Barbiturates Screen,Urine Negative (Negative); Benzodiazepines Screen,Urine Negative (Negative); Cannabinoid Screen,Urine Positive (Negative); Opiate Screen,Urine Negative (Negative); Phencyclidine Screen,Urine Negative (Negative)
[2020-05-18] MEDS: DEXTROSE 5% NACL 0.45% 1,000 ML IV SCH ×2 (09:27→19:32)
[2020-05-18 09:31] LABS: Atypical Lymphocytes Few; Eosinophils 9 % (0-10); Hypochromasia 1+; Lymphocytes 38 % (20-55); Microcytosis 1+; Ovalocytes Slight; Platelet Estimate Adequate; Segmented Neutrophils 40 % (50-85); Total Cells Counted 100
[2020-05-18 09:32] LABS: Alanine Aminotransferase 71 U/L (13-56); Albumin 4.1 G/DL (3.4-5.0); Alkaline Phosphatase 202 U/L (45-117); Aspartate Amino Transferase 178 U/L (0-37); Bilirubin,Total < 0.39 MG/DL (0.2-1.0); Blood Urea Nitrogen 14 MG/DL (7-18); Calcium 8.4 MG/DL (8.5-10.1); Estimated Glom Filtration Rate 76 ML/MIN; Glucose 183 MG/DL (74-106); Osmolality,Calculated 282.5 MOS/KG (273-304); Total Protein 8.7 G/DL (6.4-8.3)
[2020-05-18] MEDS ORDERED: SODIUM CHLORIDE 0.9% 1,000 ML IV STA (10:22)
[2020-05-18] MEDS ORDERED: PIPERACILLIN/TAZOBACTAM 3,375 MG in SODIUM CHLORIDE 0.9% 100 ML IV STA (10:24)
[2020-05-18] MEDS ORDERED: ONDANSETRON 4 MG/2 ML VIAL IV PRN (11:39)
[2020-05-18] MEDS ORDERED: DEXTROSE 50% 25 GM/50 ML VIAL IV PRN (11:39)
[2020-05-18] MEDS ORDERED: ACETAMINOPHEN 325 MG TABLET PO PRN (11:39)
[2020-05-18] MEDS ORDERED: GLUCAGON 1 MG VIAL IM PRN (11:39)
[2020-05-18] MEDS: HYDROCORTISONE 100 MG VIAL IV SCH (19:32)
[2020-05-18] MEDS ORDERED: HYDROCORTISONE 100 MG VIAL IV SCH (20:00)
[2020-05-18] MEDS: BENZTROPINE 1 MG TABLET PO SCH (21:10)
[2020-05-18] MEDS: risperiDONE 1 MG TABLET PO SCH (21:10)
[2020-05-19] MEDS: HYDROCORTISONE 100 MG VIAL IV SCH ×3 (04:14→23:58)
[2020-05-19] MEDS: DEXTROSE 5% NACL 0.45% 1,000 ML IV SCH (04:53)
[2020-05-19 05:48] LABS: Calcium 7.1 MG/DL (8.5-10.1); Osmolality,Calculated 286.3 MOS/KG (273-304)
[2020-05-19] MEDS: risperiDONE 1 MG TABLET PO SCH ×2 (08:46→21:39)
[2020-05-19] MEDS: BENZTROPINE 1 MG TABLET PO SCH ×2 (08:46→21:39)
[2020-05-19] MEDS: FLUCONAZOLE 200 MG TABLET PO SCH (08:46)
[2020-05-20] MEDS: HYDROCORTISONE 100 MG VIAL IV SCH ×2 (05:47→12:23)
[2020-05-20 07:00] LABS: Calcium 7.7 MG/DL (8.5-10.1); Osmolality,Calculated 289.6 MOS/KG (273-304)
[2020-05-20] MEDS: BENZTROPINE 1 MG TABLET PO SCH (09:08)
[2020-05-20] MEDS: FLUCONAZOLE 200 MG TABLET PO SCH (09:08)
[2020-05-20] MEDS: risperiDONE 1 MG TABLET PO SCH (09:09)
[2020-05-20 12:13] VITALS: BP 103/73
== END 2020-05-20 12:47 | disposition home health service (06) | DRG 424 ==
LOC: EDBD → N.ED 08:27 → N.EDINP 11:39 → SUATTDRO 11:39 → N.EDINP 13:00 → N.5E 13:13
PROVIDERS: ADMIT Internal Medicine; ATTEND Emergency Medicine

== ENCOUNTER 2020-07-05 11:38 | Inpatient (IN) ==
[2020-07-05] MEDS ORDERED: SODIUM CHLORIDE 0.9% 1,000 ML IV STA (11:46)
[2020-07-05 12:00] LABS: Basophils % 0.4 % (0.0-0.8); Eosinophils % 0.1 % (0.00-10.9); Hematocrit 41.5 VOL% (35.7-47.0); Hemoglobin 13.5 GM/DL (12.0-16.0); Immature Granulocytes % 0.4 %; Immature Granulocytes Absolute 0.03 #; Lymphocytes # 0.8 10*3/uL (1.4-4.0); Lymphocytes % 12.2 % (21.3-54.2); Mean Corpuscular HGB Conc 32.5 GM/DL (32-36); Mean Corpuscular Volume 87.6 FL (87-102); Monocytes % 6.1 % (1.7-12.7); Neutrophils % 80.8 % (38.7-73.9); Platelet Count 143 T/CUMM (130-400); Red Blood Count 4.74 MC/CUMM (3.8-5.5); Red Cell Distribution Width 16.3 % (9.3-17.3); White Blood Count 6.9 T/CUMM (4-12)
[2020-07-05] MEDS ORDERED: HYDROCORTISONE 100 MG VIAL IV STA (12:04)
[2020-07-05] MEDS ORDERED: PIPERACILLIN/TAZOBACTAM 3,375 MG in SODIUM CHLORIDE 0.9% 100 ML IV STA (12:08)
[2020-07-05] MEDS ORDERED: ROCURONIUM 100 MG/10 ML VIAL IV STA (12:21)
[2020-07-05] MEDS ORDERED: ETOMIDATE 20 MG/10 ML VIAL IV STA (12:21)
[2020-07-05 12:24] LABS: ABG Base Excess -13.9 MMOL/L (-2.5-2.5); ABG HCO3 13.9 MMOL/L (20-26); ABG Oxygen Saturation 99.7 % (95-100); ABG PCO2 21.1 MM HG (35-48); ABG PH 7.318 (7.35-7.45); ABG TCO2 9.7 MMOL/L (23-27)
[2020-07-05 13:08] LABS: Albumin 3.8 G/DL (3.4-5.0); Bilirubin,Total 0.5 MG/DL (0.2-1.0); Calcium 8.3 MG/DL (8.5-10.1); Osmolality,Calculated 317.8 MOS/KG (273-304); Total Protein 8.8 G/DL (6.4-8.3)
[2020-07-05] MEDS ORDERED: ONDANSETRON 4 MG/2 ML VIAL IV PRN (13:47)
[2020-07-05] MEDS ORDERED: LACTULOSE 20 GM/30 ML UDCUP PO PRN (13:47)
[2020-07-05] MEDS ORDERED: MORPHINE 4 MG/1 ML VIAL IV PRN (13:47)
[2020-07-05] MEDS ORDERED: ACETAMINOPHEN 325 MG TABLET PO PRN (13:47)
[2020-07-05] MEDS ORDERED: SODIUM CHLORIDE 0.9% 1,000 ML IV SCH (14:00)
[2020-07-05 14:21] LABS: Amorphous Crystals,Urine Occasional /HPF (Few); Bacteria,Urine Occasional /HPF (Few); Bilirubin,Urine Negative (Negative); Blood, Urine Negative (Negative); Glucose,Urine (UA) Negative (Negative); Hyaline Casts,Urine 31 /LPF (0-3); Ketones,Urine 5 mg/dL (Negative); Mucus,Urine Occasional /LPF (Occasional); Nitrite,Urine Negative (Negative); Protein,Urine 100 MG/DL; RBC,Urine 2 /HPF (0-4); Squamous Epithelial Cell,Urine Occasional /HPF (0-10); Urine Appearance Slightly Hazy (Clear); Urine Color Yellow (Yellow); Urine Specific Gravity 1.014 (1.001-1.035); Urine Urobilinogen < 2.0 EU/DL (0.2-1.0); WBC,Urine 3 /HPF (0-6)
[2020-07-05 14:25] LABS: Barbiturates Screen,Urine Negative (Negative); Benzodiazepines Screen,Urine Negative (Negative); Cannabinoid Screen,Urine Negative (Negative); Opiate Screen,Urine Negative (Negative); Phencyclidine Screen,Urine Negative (Negative)
[2020-07-05 14:39] VITALS: BP 99/69
[2020-07-05] MEDS ORDERED: SODIUM CHLORIDE 0.9% 1,000 ML IV ONE ×2 (14:40→16:40)
[2020-07-05 14:42] LABS: INR 1.1; PT Patient Result 11.5 SECS (9.8-11.9); Partial Thromboplastin Time 29.9 SECS (23.9-33.8)
[2020-07-05] MEDS ORDERED: GLUCAGON 1 MG VIAL IM PRN (15:24)
[2020-07-05] MEDS ORDERED: NOREPINEPHRINE 8 MG in SODIUM CHLORIDE 0.9% 242 ML IV PRN (16:40)
[2020-07-05] MEDS: PANTOPRAZOLE 40 MG VIAL IV SCH (16:40)
[2020-07-05] MEDS: DEXTROSE 5% NACL 0.9% 1,000 ML IV SCH (17:45)
[2020-07-05] MEDS: HYDROCORTISONE 100 MG VIAL IV SCH (20:13)
[2020-07-05] MEDS: DESMOPRESSIN 0.1 MG PO SCH (20:14)
[2020-07-06] MEDS: DEXTROSE 5% NACL 0.9% 1,000 ML IV SCH ×2 (01:46→05:36)
[2020-07-06 03:16] LABS: Basophils % 0.1 % (0.0-0.8); Hematocrit 33.8 VOL% (35.7-47.0); Hemoglobin 11.4 GM/DL (12.0-16.0); Immature Granulocytes % 0.2 %; Immature Granulocytes Absolute 0.02 #; Lymphocytes # 0.3 10*3/uL (1.4-4.0); Lymphocytes % 3.1 % (21.3-54.2); Mean Corpuscular HGB Conc 33.7 GM/DL (32-36); Mean Corpuscular Volume 86.2 FL (87-102); Mean Platelet Volume 12.6 FL (9.6-12.0); Monocytes % 2.4 % (1.7-12.7); Neutrophils % 94.2 % (38.7-73.9); Platelet Count 124 T/CUMM (130-400); Red Blood Count 3.92 MC/CUMM (3.8-5.5); White Blood Count 8.5 T/CUMM (4-12)
[2020-07-06 03:28] LABS: INR 1.1; PT Patient Result 11.4 SECS (9.8-11.9)
[2020-07-06 03:41] LABS: Alanine Aminotransferase 54 U/L (13-56); Albumin 2.6 G/DL (3.4-5.0); Alkaline Phosphatase 105 U/L (45-117); Aspartate Amino Transferase 181 U/L (0-37); Bilirubin,Total < 0.39 MG/DL (0.2-1.0); Blood Urea Nitrogen 94 MG/DL (7-18); Calcium 6.5 MG/DL (8.5-10.1); Estimated Glom Filtration Rate 9 ML/MIN; Glucose 410 MG/DL (74-106); Osmolality,Calculated 333.7 MOS/KG (273-304); Total Protein 6.3 G/DL (6.4-8.3)
[2020-07-06 03:44] LABS: Band Neutrophils 15 % (0-10); Lymphocytes 5 % (20-55); Metamyelocytes 1 %; Segmented Neutrophils 77 % (50-85); Total Cells Counted 100
[2020-07-06 03:46] LABS: Hypochromasia 1+; Platelet Estimate Adequate
[2020-07-06] MEDS ORDERED: GLUCAGON 1 MG VIAL IM PRN (04:13)
[2020-07-06] MEDS ORDERED: DEXTROSE 50% 25 GM/50 ML VIAL IV PRN (04:13)
[2020-07-06 04:34] LABS: ABG Base Excess -10.5 MMOL/L (-2.5-2.5); ABG HCO3 16.3 MMOL/L (20-26); ABG Oxygen Saturation 99.3 % (95-100); ABG PCO2 23.2 MM HG (35-48); ABG PH 7.364 (7.35-7.45); ABG TCO2 11.4 MMOL/L (23-27); Allen Test Positive; Pt O2 Delivery Device Ventilator
[2020-07-06] MEDS: HYDROCORTISONE 100 MG VIAL IV SCH ×2 (05:35→11:53)
[2020-07-06] MEDS: INSULIN REGULAR 100 UNIT/ML SUBCUT SCH ×5 (05:35→19:43)
[2020-07-06] MEDS: SODIUM CHLORIDE 0.9% 1,000 ML IV SCH ×3 (09:35→19:57)
[2020-07-06] MEDS ORDERED: CALCIUM GLUCONATE 1,000 MG in SODIUM CHLORIDE 0.9% 100 ML IV ONE ×2 (11:00→13:30)
[2020-07-06] MEDS ORDERED: cefTRIAXone 2,000 MG in SYRINGE 1 EACH IV SCH (11:00)
[2020-07-06] MEDS: cefTRIAXone 2,000 MG in SYRINGE 1 EACH IV SCH (13:27)
[2020-07-06] MEDS ORDERED: INSULIN GLARGINE 100 UNIT/ML SUBCUT SCH (15:00)
[2020-07-06 15:16] LABS: Barbiturates Screen,Urine Negative (Negative); Benzodiazepines Screen,Urine Negative (Negative); Cannabinoid Screen,Urine Negative (Negative); Opiate Screen,Urine Negative (Negative); Phencyclidine Screen,Urine Negative (Negative)
[2020-07-06] MEDS: PANTOPRAZOLE 40 MG VIAL IV SCH (15:31)
[2020-07-06] MEDS: HEPARIN 5,000 UNIT/1 ML VIAL SUBCUT SCH (15:32)
[2020-07-06] MEDS: DESMOPRESSIN 0.1 MG PO SCH (20:42)
[2020-07-06] MEDS: VALPROIC ACID 250 MG/5 ML UDCUP NG SCH (20:43)
[2020-07-07] MEDS: INSULIN REGULAR 100 UNIT/ML SUBCUT SCH ×6 (00:06→20:37)
[2020-07-07] MEDS: DEXTROSE 50% 25 GM/50 ML VIAL IV PRN ×4 (00:06→11:25)
[2020-07-07] MEDS: HEPARIN 5,000 UNIT/1 ML VIAL SUBCUT SCH ×2 (03:53→14:59)
[2020-07-07 03:58] LABS: ABG Base Excess -5.3 MMOL/L (-2.5-2.5); ABG HCO3 20.1 MMOL/L (20-26); ABG Oxygen Saturation 99.6 % (95-100); ABG PCO2 28.5 MM HG (35-48); ABG PH 7.415 (7.35-7.45); ABG TCO2 16.5 MMOL/L (23-27)
[2020-07-07 03:59] LABS: Allen Test Positive; Pt O2 Delivery Device Ventilator
[2020-07-07] MEDS ORDERED: DEXTROSE 5% NACL 0.9% 1,000 ML IV SCH (04:30)
[2020-07-07 04:52] LABS: Calcium 7.8 MG/DL (8.5-10.1); Osmolality,Calculated 326.2 MOS/KG (273-304)
[2020-07-07 05:01] LABS: Basophils % 0.1 % (0.0-0.8); Hematocrit 29.9 VOL% (35.7-47.0); Hemoglobin 10.3 GM/DL (12.0-16.0); Immature Granulocytes % 0.7 %; Immature Granulocytes Absolute 0.07 #; Lymphocytes # 0.3 10*3/uL (1.4-4.0); Lymphocytes % 2.7 % (21.3-54.2); Mean Corpuscular HGB Conc 34.4 GM/DL (32-36); Mean Corpuscular Volume 85.7 FL (87-102); Mean Platelet Volume 13.1 FL (9.6-12.0); Neutrophils % 92.5 % (38.7-73.9); Platelet Count 102 T/CUMM (130-400); Red Blood Count 3.49 MC/CUMM (3.8-5.5); Red Cell Distribution Width 15.9 % (9.3-17.3); White Blood Count 9.5 T/CUMM (4-12)
[2020-07-07 05:21] LABS: Band Neutrophils 4 % (0-10); Hypochromasia Slight; Lymphocytes 2 % (20-55); Microcytosis Slight; Platelet Estimate Adequate; Segmented Neutrophils 91 % (50-85); Total Cells Counted 100
[2020-07-07] MEDS: LEVOTHYROXINE 88 MCG TABLET PER TUBE SCH (06:22)
[2020-07-07] MEDS ORDERED: NON-FORMULARY MEDICATION (Bictegrav-Emtricit-Tenofov Ala [Biktarvy] 50-200-25 mg Tablet) PO SCH (09:00)
[2020-07-07] MEDS ORDERED: POTASSIUM PHOSPHATE 30 MMOL in SODIUM CHLORIDE 0.9% 250 ML IV ONE (09:00)
[2020-07-07] MEDS ORDERED: HYDROCORTISONE 10 MG TABLET NG SCH (09:00)
[2020-07-07] MEDS: DEXTROSE 5% 1,000 ML IV SCH ×2 (09:38→22:58)
[2020-07-07] MEDS: VALPROIC ACID 250 MG/5 ML UDCUP NG SCH ×2 (09:44→21:21)
[2020-07-07] MEDS: HYDROCORTISONE 100 MG VIAL IV SCH (09:45)
[2020-07-07] MEDS: cefTRIAXone 2,000 MG in SYRINGE 1 EACH IV SCH (14:50)
[2020-07-07] MEDS: PANTOPRAZOLE 40 MG VIAL IV SCH (14:59)
[2020-07-07 18:26] LABS: % CD4 (T Cells) 1 % (32-64); % CD8 (T Cells) 64 % (15-40); 4/8 Ratio 0 (>=0.9)
[2020-07-07] MEDS: DESMOPRESSIN 0.1 MG PO SCH (21:21)
[2020-07-08] MEDS: INSULIN REGULAR 100 UNIT/ML SUBCUT SCH ×6 (00:27→21:08)
[2020-07-08 03:52] LABS: Basophils % 0.1 % (0.0-0.8); Hematocrit 28.3 VOL% (35.7-47.0); Hemoglobin 9.5 GM/DL (12.0-16.0); Immature Granulocytes % 1.9 %; Immature Granulocytes Absolute 0.17 #; Lymphocytes # 0.3 10*3/uL (1.4-4.0); Lymphocytes % 3.7 % (21.3-54.2); Mean Corpuscular HGB Conc 33.6 GM/DL (32-36); Mean Corpuscular Volume 87.1 FL (87-102); Monocytes % 4.5 % (1.7-12.7); Neutrophils % 89.8 % (38.7-73.9); Platelet Count 76 T/CUMM (130-400); Red Blood Count 3.25 MC/CUMM (3.8-5.5); Red Cell Distribution Width 16.3 % (9.3-17.3)
[2020-07-08 04:17] LABS: Calcium 7.6 MG/DL (8.5-10.1); Osmolality,Calculated 316.3 MOS/KG (273-304)
[2020-07-08] MEDS: HEPARIN 5,000 UNIT/1 ML VIAL SUBCUT SCH (04:29)
[2020-07-08 04:44] LABS: Hypochromasia 1+; Lymphocytes 1 % (20-55); Ovalocytes Slight; Platelet Estimate Decreased; Segmented Neutrophils 93 % (50-85); Total Cells Counted 100
[2020-07-08 04:45] LABS: Microcytosis Slight
[2020-07-08 05:02] LABS: ABG Base Excess -4.9 MMOL/L (-2.5-2.5); ABG HCO3 20.4 MMOL/L (20-26); ABG Oxygen Saturation 99.8 % (95-100); ABG PCO2 25.6 MM HG (35-48); ABG PH 7.453 (7.35-7.45); ABG TCO2 16.3 MMOL/L (23-27); Allen Test Positive; Pt O2 Delivery Device Ventilator
[2020-07-08] MEDS: LEVOTHYROXINE 88 MCG TABLET PER TUBE SCH (06:29)
[2020-07-08] MEDS ORDERED: FONDAPARINUX 2.5 MG/0.5 ML SYRINGE SUBCUT SCH (08:30)
[2020-07-08] MEDS: VALPROIC ACID 250 MG/5 ML UDCUP NG SCH ×2 (09:50→20:40)
[2020-07-08] MEDS: APIXABAN 2.5 MG TABLET PER TUBE SCH ×2 (09:50→20:40)
[2020-07-08] MEDS: HYDROCORTISONE 100 MG VIAL IV SCH (09:50)
[2020-07-08] MEDS: cefTRIAXone 2,000 MG in SYRINGE 1 EACH IV SCH (15:51)
[2020-07-08] MEDS: PANTOPRAZOLE 40 MG VIAL IV SCH (15:52)
[2020-07-08] MEDS: FAMOTIDINE 20 MG/2 ML VIAL IV SCH (16:50)
[2020-07-08] MEDS ORDERED: AZITHROMYCIN 40 MG/ML 15 ML/BOTTLE PO SCH (21:00)
[2020-07-08] MEDS: DESMOPRESSIN 0.1 MG PO SCH (21:08)
[2020-07-09] MEDS: INSULIN REGULAR 100 UNIT/ML SUBCUT SCH ×6 (00:37→20:14)
[2020-07-09] MEDS: FAMOTIDINE 20 MG/2 ML VIAL IV SCH ×2 (02:03→15:49)
[2020-07-09 04:26] LABS: ABG Base Excess -3.1 MMOL/L (-2.5-2.5); ABG HCO3 19.6 MMOL/L (20-26); ABG Oxygen Saturation 98.8 % (95-100); ABG PCO2 27.4 MM HG (35-48); ABG PH 7.473 (7.35-7.45); ABG TCO2 20.5 MMOL/L (23-27); Allen Test Positive; Pt O2 Delivery Device Ventilator
[2020-07-09 04:59] LABS: Basophils % 0.1 % (0.0-0.8); Hematocrit 28.1 VOL% (35.7-47.0); Hemoglobin 9.2 GM/DL (12.0-16.0); Immature Granulocytes % 3.9 %; Lymphocytes # 0.3 10*3/uL (1.4-4.0); Lymphocytes % 4.3 % (21.3-54.2); Mean Corpuscular HGB Conc 32.7 GM/DL (32-36); Neutrophils % 87.7 % (38.7-73.9); Platelet Count 83 T/CUMM (130-400); Red Blood Count 3.23 MC/CUMM (3.8-5.5); Red Cell Distribution Width 16.1 % (9.3-17.3); White Blood Count 7.7 T/CUMM (4-12)
[2020-07-09 05:11] LABS: Alanine Aminotransferase 60 U/L (13-56); Albumin 2.4 G/DL (3.4-5.0); Alkaline Phosphatase 98 U/L (45-117); Aspartate Amino Transferase 227 U/L (0-37); Bilirubin,Total < 0.39 MG/DL (0.2-1.0); Blood Urea Nitrogen 45 MG/DL (7-18); Calcium 8.2 MG/DL (8.5-10.1); Estimated Glom Filtration Rate 28 ML/MIN; Glucose 120 MG/DL (74-106); Osmolality,Calculated 304.4 MOS/KG (273-304); Total Protein 6.4 G/DL (6.4-8.3)
[2020-07-09] MEDS: LEVOTHYROXINE 88 MCG TABLET PER TUBE SCH (05:46)
[2020-07-09 09:18] LABS: Band Neutrophils 3 % (0-10); Lymphocytes 4 % (20-55); Metamyelocytes 2 %; Segmented Neutrophils 87 % (50-85); Total Cells Counted 100
[2020-07-09 09:19] LABS: Anisocytosis 1+; Macrocytosis 1+; Platelet Estimate Decreased
[2020-07-09] MEDS: VALPROIC ACID 250 MG/5 ML UDCUP NG SCH ×2 (09:57→20:14)
[2020-07-09] MEDS: APIXABAN 2.5 MG TABLET PER TUBE SCH ×2 (09:58→20:14)
[2020-07-09] MEDS: predniSONE 20 MG TABLET PO SCH (09:58)
[2020-07-09] MEDS: MULTIVITAMIN LIQUID (CENTRUM) 60 ML BOTTLE PO SCH (09:58)
[2020-07-09] MEDS ORDERED: FUROSEMIDE 40 MG/4 ML VIAL IV ONE ×2 (10:15)
[2020-07-09] MEDS: cefTRIAXone 2,000 MG in SYRINGE 1 EACH IV SCH (15:50)
[2020-07-10] MEDS: INSULIN REGULAR 100 UNIT/ML SUBCUT SCH ×7 (00:08→23:53)
[2020-07-10] MEDS: DESMOPRESSIN 0.1 MG PO SCH ×2 (00:25→20:36)
[2020-07-10] MEDS: FAMOTIDINE 20 MG/2 ML VIAL IV SCH ×2 (02:27→14:50)
[2020-07-10 04:14] LABS: Basophils % 0.2 % (0.0-0.8); Hematocrit 31.5 VOL% (35.7-47.0); Hemoglobin 10.7 GM/DL (12.0-16.0); Immature Granulocytes % 4.6 %; Immature Granulocytes Absolute 0.38 #; Lymphocytes # 0.5 10*3/uL (1.4-4.0); Lymphocytes % 5.5 % (21.3-54.2); Mean Corpuscular Volume 87.3 FL (87-102); Monocytes % 6.2 % (1.7-12.7); Neutrophils % 83.5 % (38.7-73.9); Platelet Count 89 T/CUMM (130-400); Red Blood Count 3.61 MC/CUMM (3.8-5.5); Red Cell Distribution Width 16.1 % (9.3-17.3); White Blood Count 8.2 T/CUMM (4-12)
[2020-07-10 04:49] LABS: Calcium 8.8 MG/DL (8.5-10.1); Osmolality,Calculated 299.8 MOS/KG (273-304)
[2020-07-10 05:18] LABS: ABG Base Excess 0.7 MMOL/L (-2.5-2.5); ABG Oxygen Saturation 98.8 % (95-100); ABG PCO2 34.2 MM HG (35-48); ABG PH 7.457 (7.35-7.45); ABG TCO2 21.9 MMOL/L (23-27); Allen Test Positive; Pt O2 Delivery Device Ventilator
[2020-07-10 05:43] LABS: Band Neutrophils 1 % (0-10); Lymphocytes 6 % (20-55); Platelet Estimate Decreased; Segmented Neutrophils 90 % (50-85); Total Cells Counted 100
[2020-07-10] MEDS: LEVOTHYROXINE 88 MCG TABLET PER TUBE SCH (05:46)
[2020-07-10 05:54] LABS: Microcytosis 1+
[2020-07-10 05:55] LABS: Anisocytosis Slight; Schistocytes Few
[2020-07-10 05:56] LABS: Ovalocytes Few
[2020-07-10] MEDS ORDERED: FUROSEMIDE 20 MG/2 ML VIAL IV ONE (08:34)
[2020-07-10] MEDS: predniSONE 20 MG TABLET PO SCH (09:21)
[2020-07-10] MEDS: VALPROIC ACID 250 MG/5 ML UDCUP NG SCH ×2 (09:22→20:02)
[2020-07-10] MEDS: APIXABAN 2.5 MG TABLET PER TUBE SCH ×2 (09:22→20:02)
[2020-07-10] MEDS: MULTIVITAMIN LIQUID (CENTRUM) 60 ML BOTTLE PO SCH (09:25)
[2020-07-10] MEDS: cefTRIAXone 2,000 MG in SYRINGE 1 EACH IV SCH (14:49)
[2020-07-11] MEDS: FAMOTIDINE 20 MG/2 ML VIAL IV SCH (01:32)
[2020-07-11 04:18] LABS: ABG Oxygen Saturation 99.3 % (95-100); ABG PCO2 35.4 MM HG (35-48); ABG PH 7.492 (7.35-7.45); Allen Test Positive; Pt O2 Delivery Device Ventilator
[2020-07-11] MEDS: LEVOTHYROXINE 88 MCG TABLET PER TUBE SCH (05:44)
[2020-07-11] MEDS: INSULIN REGULAR 100 UNIT/ML SUBCUT SCH ×4 (06:00→18:28)
[2020-07-11 06:47] LABS: Basophils % 0.4 % (0.0-0.8); Hematocrit 32.3 VOL% (35.7-47.0); Hemoglobin 10.5 GM/DL (12.0-16.0); Immature Granulocytes % 3.3 %; Immature Granulocytes Absolute 0.37 #; Lymphocytes # 0.6 10*3/uL (1.4-4.0); Lymphocytes % 4.9 % (21.3-54.2); Mean Corpuscular HGB Conc 32.5 GM/DL (32-36); Mean Platelet Volume 13.7 FL (9.6-12.0); Monocytes % 8.2 % (1.7-12.7); Neutrophils % 83.2 % (38.7-73.9); Platelet Count 121 T/CUMM (130-400); Red Blood Count 3.67 MC/CUMM (3.8-5.5); Red Cell Distribution Width 15.8 % (9.3-17.3); White Blood Count 11.2 T/CUMM (4-12)
[2020-07-11 07:03] LABS: Osmolality,Calculated 291.4 MOS/KG (273-304)
[2020-07-11 07:14] LABS: Lymphocytes 2 % (20-55); Segmented Neutrophils 94 % (50-85); Total Cells Counted 100
[2020-07-11 07:15] LABS: Hypochromasia 1+; Microcytosis 1+; Ovalocytes Slight
[2020-07-11] MEDS: VALPROIC ACID 250 MG/5 ML UDCUP NG SCH ×2 (08:15→20:45)
[2020-07-11] MEDS: MULTIVITAMIN LIQUID (CENTRUM) 60 ML BOTTLE PO SCH (08:15)
[2020-07-11] MEDS: APIXABAN 2.5 MG TABLET PER TUBE SCH (08:15)
[2020-07-11] MEDS: predniSONE 20 MG TABLET PO SCH (08:15)
[2020-07-11] MEDS: cefTRIAXone 2,000 MG in SYRINGE 1 EACH IV SCH (17:42)
[2020-07-11] MEDS: DESMOPRESSIN 0.1 MG PO SCH (21:15)
[2020-07-12] MEDS: MORPHINE 4 MG/1 ML VIAL IV PRN ×6 (00:07→15:37)
[2020-07-12] MEDS: LEVOTHYROXINE 88 MCG TABLET PER TUBE SCH (05:14)
[2020-07-12] MEDS: VALPROIC ACID 250 MG/5 ML UDCUP NG SCH (08:11)
[2020-07-12] MEDS ORDERED: FAMOTIDINE 20 MG/2 ML VIAL IV SCH (09:00)
[2020-07-12] MEDS: LORazepam 2 MG/1 ML VIAL IV PRN ×4 (09:05→15:34)
[2020-07-12] MEDS: predniSONE 20 MG TABLET PO SCH (09:09)
== END 2020-07-12 17:25 | disposition expired | DRG 816 ==
LOC: EDUNIT# → EDBD → N.ED 11:38 → N.EDINP 13:47 → SUATTDRO 13:47 → N.CC 14:13
PROVIDERS: ADMIT Internal Medicine; ATTEND Internal Medicine